=== PATIENT | male | born 1995 | race Caucasian/White ===

== ENCOUNTER 2019-06-25 04:45 | Emergency (ER) | payer OTHER | END 2019-06-25 04:54 | disposition left against medical advice (07) | LOC: ER 04:45 | DX: M25.511 Pain in right shoulder (principal); Z53.21 Procedure and treatment not carried out due to patient leaving prior to being seen by health care provider ==

== ENCOUNTER → 2019-07-13 | Outpatient (CLI) | payer OTHER ==
--- NOTE | 2019-07-14 02:45 | RAD ---
Three views right shoulder History: pain status post fall Internally and externally rotated AP of shoulder obtained, as well as "Y" view. The glenohumeral relationship is normal. The distal clavicle projects above the acromion. Impression: Right AC separation. end impression Electronically signed by: Getachew Gonzalez III, MD (07/14/2019 2:42 AM) [id number]
== END | disposition home or self-care (01) ==
LOC: RAD 17:38
PROVIDERS: ATTEND General Practice
DX: S43.121A Dislocation of right acromioclavicular joint, 100%-200% displacement, initial encounter (principal); W19.XXXA Unspecified fall, initial encounter; Y93.89 Activity, other specified; Y92.89 Other specified places as the place of occurrence of the external cause; Y99.8 Other external cause status
CPT/HCPCS: 73030